=== PATIENT | female | born 1980 | race Caucasian/White ===

== ENCOUNTER 2024-02-29 12:05 | Emergency (ER) | payer SELFPAY ==
[2024-02-29 13:04] LABS: Bilirubin Negative (Negative); Blood, Urine Negative (Negative); CAUTI Indications for Culture Dysuria,urgency,freq; Clarity Turbid (Clear); Glucose, Urine (Dipstick) Normal (Negative); Ketone, Urine Negative (Negative); Leukocyte 75 Leu/uL (Negative); Nitrite 2+ (Negative); Protein, Urine (Dipstick) 20 mg/dL (Neg-Trace); Specific Gravity, Urine 1.019 (1.002-1.036); Urobilinogen Normal mg/dL (Less than 2); WBC/HPF Greater than 50 HPF (0-3)
[2024-02-29 13:05] LABS: Pregnancy Test - Urine (BHCG) Negative (Negative); Pregu Control Background? CLEAR/WHITE (CLR/WHITE); Pregu Control Bar Appear? YES (CONTROL BAR); Specific Gravity 1.019 (1.002-1.036)
[2024-02-29 13:16] LABS: Bacteria/HPF 4+ HPF (None Seen)
[2024-02-29 13:18] LABS: Urine Culture Reflex Yes Yes
[2024-02-29] MEDS ORDERED: Lidocaine 1% MPF 2 ML VIAL ONE (13:19)
[2024-02-29] MEDS ORDERED: cefTRIAXone (ROCEPHIN) 500 MG VIAL ONE (13:20)
[2024-02-29] MEDS ORDERED: hydrOXYzine 25 MG TAB ONE (13:54)
[2024-02-29 23:35] LABS: GC by PCR, Vaginal Swab Not Detected (NotDetected)
== END 2024-02-29 16:02 | disposition home or self-care (01) ==
LOC: ERS 12:05
DX: N30.90 Cystitis, unspecified without hematuria (principal); N76.0 Acute vaginitis; F17.210 Nicotine dependence, cigarettes, uncomplicated; I10 Essential (primary) hypertension
CPT/HCPCS: 81001; 81025; 87077; 87086; 87186; 87480; 87510; 87591; 87660; 96372; 99283; J0696